=== PATIENT | male | born 1990 | race Caucasian/White ===

== ENCOUNTER 2018-03-27 10:06 | Emergency (ER) | payer SELFPAY ==
[2018-03-27] MEDS: ONDANSETRON (ODT) 4 MG TAB ODT (12:57)
[2018-03-27] MEDS: KETOROLAC 60 MG INJ IM (12:58)
== END 2018-03-27 14:24 | disposition home or self-care (01) ==
LOC: FTE 14:24
DX: R11.10 Vomiting, unspecified (principal); R51 Headache
CPT/HCPCS: 96372; 99284-25